=== PATIENT | female | born 2000 | race American Indian/Alaskan Native ===

== ENCOUNTER 2019-05-23 13:13 | Emergency (ER) | payer SELFPAY ==
[2019-05-23 13:29] VITALS: BP 110/78
[2019-05-23 15:07] LABS: Bilirubin,Urine NEG (Negative); Blood,Urine NEG (Negative); Color,Urine Yellow (Yellow); Mucus,Urine 3+ /HPF; Protein,Urine <15 mg/dL mg/dL (Negative)
[2019-05-23 15:16] LABS: HCG Qualitative,Urine Negative (Negative)
--- NOTE | 2019-05-23 19:04 | Emergency Department Report ---
ED Back Pain/Injury HPI - General Chief Complaint: Back Pain/Injury Stated Complaint: VAGINAL DISCOMFORT Time Seen by Provider: 05/23/19 18:10 Source: patient Limitations: No Limitations - History of Present Illness Initial Comments: 19-year-old -[place] female presents to the emergency room for concern for STD. Patient states she has unusual vaginal discharge. Patient denies any pelvic pain or abdominal pain. She denies any fever chills. Patient denies any dysuria. Patient reports that she has back pain she works in a [employer] has been going on for 2 weeks but has not taken anything for pain. Patient reports since her last menstrual period was 10/13/2018. She admits to having irregular menses. She is sexually active with males without condoms 1 partner last 6 months. Complaint: back pain Onset/Timin -: week(s) Place: work Quality: aching Consistency: intermittent Worsens With: none Associated Symptoms: denies other symptoms - Related Data Allergies Allergy/AdvReac Type Severity Reaction Status Date / Time No Known Allergies Allergy Unverified 05/23/19 13:25 ED Review of Systems ROS: Stated complaint: VAGINAL DISCOMFORT Other details as noted in HPI Comment: All other systems reviewed and negative ED Past Medical Hx - Past Medical History Previous Medical History?: No - Surgical History Past Surgical History?: No - Social History Smoking Status: Never Smoker Substance Use Type: Marijuana ED Physical Exam - General Limitations: No Limitations General appearance: alert, in no apparent distress - Head Head exam: Present: atraumatic, normocephalic - ENT ENT exam: Present: mucous membranes moist - Back Exam Back exam: Present: normal inspection, full ROM, muscle spasm - Neurological Exam Neurological exam: Present: alert, oriented X3, normal gait - Psychiatric Psychiatric exam: Present: normal affect, normal mood - Skin Skin exam: Present: warm, dry, intact, normal color. Absent: rash ED Course Vital Signs 05/23/19 13:26 Temperature 98.7 F Pulse Rate 94 H Respiratory 16 Rate Blood Pressure 110/78 O2 Sat by Pulse 97 Oximetry ED Medical Decision Making - Medical Decision Making 19-year-old -[place] female presents to the emergency room for concern for STD. Patient states she has unusual vaginal discharge. Patient denies any pelvic pain or abdominal pain. She denies any fever chills. Patient denies any dysuria. 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 Patient reports since her last menstrual period was 10/13/2018. She admits to having irregular menses. She is sexually active with males without condoms 1 partner last 6 months. Urinalysis and test negative. Discussed the patient since she has currently no back pain at this moment she can take ibuprofen or Tylenol for pain management. She can also follow up at the health department for STD evaluation. Critical care attestation.: If time is entered above; I have spent that time in minutes in the direct care of this critically ill patient, excluding procedure time. ED Disposition Clinical Impression: Back pain Qualifiers: Back pain location: low back pain Chronicity: unspecified Back pain laterality: bilateral Sciatica presence: without sciatica Qualified Code(s): M54.5 - Low back pain Disposition: DC-01 TO HOME OR SELFCARE Is pt being admited?: No Does the pt Need Aspirin: No Condition: Stable Instructions: Low Back Strain (ED) Additional Instructions: Urine negative for any infection negative test. Please follow-up with the health department for further STD screening. I have listed the information below for your convenience. Referrals: PRIMARY CARE, [Primary Care Provider] - 3-5 Days
== END 2019-05-23 19:10 | disposition home or self-care (01) ==
LOC: ED 13:13
DX: N89.8 Other specified noninflammatory disorders of vagina (principal); M54.9 Dorsalgia, unspecified; F12.10 Cannabis abuse, uncomplicated
CPT/HCPCS: 81001; 81025